=== PATIENT | female | born 1955 | race Two or more races ===

== ENCOUNTER 2025-02-04 05:26 | Day surgery (SDC) | payer OTHER ==
[2025-01-28 12:52] VITALS: BP 148/84
[~2025-02-04] VITALS: Ht 157.5 cm; Wt 80.7 kg
[2025-02-04] MEDS ORDERED: CEFAZOLIN SODIUM 1,000 MG VIAL IV SCH (09:45)
[2025-02-04] MEDS ORDERED: LIDOCAINE HCL 1%/EPINEPHRINE 50ML VIAL IJ SCH (09:45)
[2025-02-04] MEDS ORDERED: CHLORHEXIDINE GLUCONATE 120 ML BOTTLE TOP SCH (09:45)
[2025-02-04] MEDS ORDERED: GENTAMICIN SULFATE 40 MG/ML VIAL IR SCH (10:00)
[2025-02-04] MEDS ORDERED: MACROBID 100 M100 MG PO (10:54)
[2025-02-04] MEDS ORDERED: TRAM1TAB98 PO (10:56)
== END 2025-02-04 14:35 | disposition home or self-care (01) ==
LOC: CIR.AMB 05:26
PROVIDERS: ATTEND Obstetrics & Gynecology Gynecology
DX: N81.11 Cystocele, midline (principal)